=== PATIENT | female | born 1965 | race Two or more races ===

== ENCOUNTER 2020-07-15 04:26 | Emergency (ER) | payer OTHER ==
[~2020-07-15] VITALS: Ht 165.1 cm; Wt 72.6 kg
[2020-07-15] MEDS ORDERED: WELLBUTRIN SR150 MG (04:56)
[2020-07-15] MEDS ORDERED: TEMAZEPAM7.5 M1 (04:56)
[2020-07-15] MEDS ORDERED: BUTALB-ACETAMI1 EAC2 PO (16:18)
== END 2020-07-15 16:30 | disposition home or self-care (01) ==
LOC: ER 04:26
DX: N93.8 Other specified abnormal uterine and vaginal bleeding (principal); R51.9 Headache, unspecified

== ENCOUNTER 2022-03-26 18:45 | Outpatient (CLI) | payer OTHER ==
[~2022-03-26 18:45] MED LIST: BUTALB-ACETAMI1 EAC2 PO; TEMAZEPAM7.5 M1; WELLBUTRIN SR150 MG
== END 2022-03-26 23:00 | disposition home or self-care (01) ==
LOC: LAB 18:45
DX: Z20.828 Contact with and (suspected) exposure to other viral communicable diseases (principal); Z20.818 Contact with and (suspected) exposure to other bacterial communicable diseases